=== PATIENT | male | born 1990 ===

== ENCOUNTER 2018-01-13 20:50 | Emergency (ER) | payer OTHER ==
[2018-01-13 20:50] VITALS: BMI 21.7
[2018-01-13 21:51] VITALS: BP 101/66; PULSE 76; RESP 16; TEMP 98.3; O2SAT 100
[2018-01-13 22:43] LABS: BASO # 0.1 K/uL (0.0-0.2); BASO % 1.1 % (0.0-2.0); EOS # 0.4 K/uL (0.0-0.7); EOS % 4.6 % (0.0-4.0); HEMOGLOBIN 11.7 g/dL (12.0-18.0); LYMPH # 2.7 K/uL (1.0-4.3); MEAN CELL VOLUME 85.2 fL (80.0-94.0); MEAN CORPUSCULAR HEMOGLOBIN 28.6 pg (27.0-31.0); MEAN CORPUSCULAR HGB CONC 33.6 g/dL (33.0-37.0); MEAN PLATELET VOLUME 7.4 fL (7.2-11.7); MONO # 0.6 K/uL (0.0-0.8); MONO % 8.3 % (0.0-10.0); NEUT # 3.9 K/uL (1.8-7.0); NRBC % 0.1 % (0.0-2.0); RBC 4.09 Mil/uL (4.40-5.90); RED CELL DISTRIBUTION WIDTH 13.5 % (11.5-14.5); WHITE BLOOD COUNT 7.6 K/uL (4.8-10.8)
[2018-01-13 23:00] LABS: ALB/GLOB RATIO 1.2 (1.0-2.1); ALBUMIN 3.5 g/dL (3.5-5.0); ALT/SGPT 27 U/L (21-72); AST/SGOT 18 U/L (17-59); BLOOD UREA NITROGEN 14 mg/dL (9-20); CALCIUM 8.8 mg/dl (8.6-10.4); GFR AFRICAN-AMERICAN > 60; GFR NON-AFRICAN AMERICAN > 60
--- NOTE | 2018-01-13 23:05 | C.PDOC ---
History Of Present Illness Pt came in requesting detox from Heroin. Time Seen by Provider: 01/13/18 22:03 Chief Complaint (Nursing): Substance Abuse History Per: Patient Onset/Duration Of Symptoms: Days Current Symptoms Are (Timing): Still Present Suicide/Self Injury Attempted (Context): None Modifying Factor(s): Narcotics Severity: Moderate Associated Symptoms: denies: Suicidal Thoughts, Suicidal Plan Additional History Per: Prior Records Past Medical History Reviewed: Historical Data, Nursing Documentation, Vital Signs Vital Signs: Last Vital Signs Temp 98.3 F 01/13/18 21:44 Pulse 76 01/13/18 21:44 Resp 16 01/13/18 21:44 BP 101/66 01/13/18 21:44 Pulse Ox 100 01/13/18 21:44 - Medical History PMH: Bipolar Disorder, Depression, Diabetes, Personality Disorder - [facility] GROUP PSYCHOTHERAPY (08/31/17) INDIV PSYCHOTHERAPY FOR SUBSTANCE ABUSE, COGNITIV BEHAVIORAL (08/31/17) INDIVIDUAL PSYCHOTHERAPY, COGNITIVE-BEHAVIORAL (08/31/17) Family History: States: Unknown Family Hx - Social History Hx Alcohol Use: No Hx Substance Use: Yes ([facility] Heroin) - Immunization History Hx Tetanus Toxoid Vaccination: Yes (last booster was one month ago) Hx Influenza Vaccination: No Hx Pneumococcal Vaccination: No Review Of Systems Except As Marked, All Systems Reviewed And Found Negative. Constitutional: Negative for: Fever Cardiovascular: Negative for: Chest Pain Respiratory: Negative for: Shortness of Breath Gastrointestinal: Negative for: Vomiting, Abdominal Pain Musculoskeletal: Negative for: Neck Pain Neurological: Negative for: Weakness, Numbness, Seizures Psych: Negative for: Psychosis Physical Exam - Physical Exam Appears: Non-toxic, No Acute Distress Skin: Normal Color, Warm, Dry Head: Atraumatic, Normacephalic Eye(s): bilateral: PERRL, EOMI Neck: Normal ROM, Supple Chest: Symmetrical Cardiovascular: Rhythm Regular Respiratory: Normal Breath Sounds, No Accessory Muscle Use Gastrointestinal/Abdominal: Soft, No Tenderness Back: No Vertebral Tenderness Extremity: Normal ROM, No Deformity, Other (Track douglas on arms) Neurological/Psych: Oriented x3, Normal Motor, Normal Sensation ED Course And Treatment - Laboratory Results Result Diagrams: 01/13/18 22:38 01/13/18 22:38 O2 Sat by Pulse Oximetry: 100 Pulse Ox Interpretation: Normal Progress Note: After blood work was drawn, I was informed by the staff that pt said that he changed his mind and does not want detox any more. He then walked out during evaluation. Disposition - Disposition Disposition: ELOPEMENT - ER ONLY Disposition Time: 23:05 Condition: STABLE - Clinical Impression Clinical Impression: Heroin abuse, Left before treatment completed
== END 2018-01-13 22:50 | disposition left against medical advice (07) ==
LOC: C.ER 20:50
DX: F11.10 Opioid abuse, uncomplicated (principal)